=== PATIENT | female | born 1975 | race African-American/Black ===

== ENCOUNTER 2017-08-18 16:07 | Emergency (ER) | payer SELFPAY ==
--- NOTE | 2017-08-18 16:46 | RAD ---
LEFT SHOULDER: 08/18/17 Three views. HISTORY: Shoulder pain. No evidence of fracture. No evidence of dislocation. AC joint is normally aligned. IMPRESSION: Unremarkable left shoulder. POS: [facility]
== END 2017-08-18 16:58 | disposition home or self-care (01) ==
LOC: ERS 16:07
DX: S43.422A Sprain of left rotator cuff capsule, initial encounter (principal); I10 Essential (primary) hypertension; X58.XXXA Exposure to other specified factors, initial encounter

== ENCOUNTER 2018-07-24 18:57 | Emergency (ER) | payer SELFPAY ==
[2018-07-24] MEDS ORDERED: Acetaminophen 500 MG TAB ONE ×2 (20:17→20:27)
[2018-07-24] MEDS ORDERED: Metoclopramide HCl 10 MG/2 ML VIAL ONE (20:17)
[2018-07-24] MEDS ORDERED: diphenhydrAMINE 50 MG/ML VIAL ONE (20:17)
[2018-07-24] MEDS ORDERED: Ketorolac Tromethamine 30 MG/ML VIAL ONE (20:17)
[2018-07-24] MEDS ORDERED: Magnesium Sulfate 2 GM/100 ML BAG ONE (22:04)
[2018-07-24] MEDS ORDERED: methylPREDNISolone Sod Succ/PF 125 MG/2 ML VIAL ONE (22:04)
== END 2018-07-24 23:17 | disposition home or self-care (01) ==
LOC: ERS 18:57
DX: G43.909 Migraine, unspecified, not intractable, without status migrainosus (principal); I10 Essential (primary) hypertension; Z79.899 Other long term (current) drug therapy
CPT/HCPCS: 96361; 96365; 96375; J1200; J1885; J2765; J2930; J3475

== ENCOUNTER 2019-01-20 13:40 | Outpatient (CLI) | payer MEDICAID ==
--- NOTE | 2019-02-08 15:54 | MMO ---
Bilateral MAMMO Bilat Screen [facility]DI. CLINICAL HISTORY: Patient is 43 years old and is seen for screening. The patient has no family history of breast cancer. The patient has no personal history of cancer. VIEWS: The views performed were: bilateral craniocaudal and bilateral mediolateral oblique. This study has been interpreted with the assistance of computer-aided detection. MAMMOGRAM FINDINGS: The breasts are heterogeneously dense, which could obscure a lesion on mammography. There are no suspicious masses, suspicious calcifications, or new areas of architectural distortion. IMPRESSION: THERE IS NO MAMMOGRAPHIC EVIDENCE OF MALIGNANCY. A ROUTINE FOLLOW-UP MAMMOGRAM IN 1 YEAR IS RECOMMENDED. ACR BI-RADS Category 1 - Negative MAMMOGRAPHY NOTE: 1. A negative mammogram report should not delay a biopsy if a dominant of clinically suspicious mass is present. 2. Approximately 10% to 15% of breast cancers are not detected by mammography. 3. Adenosis and dense breasts may obscure an underlying neoplasm.
== END 2019-01-20 13:41 | disposition home or self-care (01) ==
LOC: SCSMAMMO 13:40
PROVIDERS: ATTEND Nurse Practitioner Family
DX: Z12.31 Encounter for screening mammogram for malignant neoplasm of breast (principal)
CPT/HCPCS: 77067

== ENCOUNTER 2019-08-22 21:36 | Emergency (ER) | payer MEDICAID ==
[2019-08-22 23:56] LABS: #Basophils 0.1 thou/uL (0.0-0.2); #Eosinphils 0.1 thou/uL (0.0-0.7); #Lymphocytes 2.7 thou/uL (1.20-3.40); #Monocytes 0.7 thou/uL (0.11-0.59); #Neutrophils 5.4 thou/uL (1.40-6.50); %Eosinophils 1.5 % (0.0-10.0); %Lymphocytes 29.5 % (21.0-51.0); %Monocytes 7.7 % (0.0-10.0); %Neutrophils 60.3 % (42.0-75.0); Hemoglobin 12.4 g/dL (12.0-16.0); Mean Corpuscular HGB CONC 33.9 g/dL (32.0-36.0); Mean Corpuscular Hemoglobin 28.6 pg (27.0-31.0); Mean Corpuscular Volume 84.4 fL (78.0-98.0); Mean Platelet Volume 7.1 fL (7.4-10.4); Platelet Count 313 thou/uL (130-400); RBC Distribution Width 12.3 % (11.5-14.5); Red Blood Cell (RBC) Count 4.35 mill/uL (4.20-5.40)
[2019-08-23 00:19] LABS: ALT (SGPT) 10 U/L (8-55); AST (SGOT) 15 U/L (5-34); Albumin 4.1 g/dL (3.5-5.0); Alkaline Phosphatase 59 U/L (40-110); Anion Gap 14 mmol/L (10-20); BUN (Urea Nitrogen) 7 mg/dL (7.0-18.7); Bilirubin, Total 0.4 mg/dL (0.2-1.2); Calc. Creatinine Clearance 0 mL/min (70-130); Calcium 9.2 mg/dL (7.8-10.44); Carbon Dioxide 26 mmol/L (22-29); Chloride 97 mmol/L (98-107); Estimated GFR-MDRD Greater than 90; Globulin 3.8 g/dL (2.4-3.5); Glucose 95 mg/dL (70-105); Lipase 24 U/L (8-78); Potassium 3.6 mmol/L (3.5-5.1); Protein, Total 7.9 g/dL (6.0-8.3); Sodium 133 mmol/L (136-145)
[2019-08-23 00:27] LABS: Bilirubin Negative (Negative); Blood, Urine Negative (Negative); Clarity Clear (Clear); Glucose, Urine (Dipstick) Normal (Negative); Leukocyte Negative Leu/uL (Negative); Nitrite Negative (Negative); Protein, Urine (Dipstick) 10 mg/dL (Neg-Trace); Urobilinogen Normal mg/dL (Less than 2)
[2019-08-23 00:30] LABS: Pregnancy Test - Urine (BHCG) Negative (Negative); Pregu Control Background? CLEAR/WHITE (CLR/WHITE); Pregu Control Bar Appear? YES (CONTROL BAR); Specific Gravity 1.025 (1.002-1.036)
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
== END 2019-08-23 02:40 | disposition home or self-care (01) ==
LOC: ERS 21:36
DX: R51 Headache (principal); I10 Essential (primary) hypertension; F32.9 Major depressive disorder, single episode, unspecified; V59.9XXA Occupant (driver) (passenger) of pick-up truck or van injured in unspecified traffic accident, initial encounter
CPT/HCPCS: 36415; 70450; 71045; 72125; 80053; 81003; 81025; 83690; 85025; 93005; 96374

== ENCOUNTER 2019-12-25 10:59 | Emergency (ER) | payer MEDICAID, SELFPAY ==
[2019-12-25 11:42] LABS: Bilirubin Negative (Negative); Blood, Urine Negative (Negative); Clarity Clear (Clear); Glucose, Urine (Dipstick) Normal (Negative); Leukocyte Negative Leu/uL (Negative); Nitrite Negative (Negative); Protein, Urine (Dipstick) Negative (Neg-Trace); Urobilinogen Normal mg/dL (Less than 2)
== END 2019-12-25 12:18 | disposition home or self-care (01) ==
LOC: ERS 10:59
DX: J06.9 Acute upper respiratory infection, unspecified (principal); F32.9 Major depressive disorder, single episode, unspecified; I10 Essential (primary) hypertension; Z79.899 Other long term (current) drug therapy
CPT/HCPCS: 81003; 99284

== ENCOUNTER 2020-09-29 10:24 | Emergency (ER) | payer SELFPAY ==
[2020-09-29] MEDS ORDERED: diphenhydrAMINE 50 MG/ML VIAL ONE (10:45)
[2020-09-29] MEDS ORDERED: Acetaminophen 500 MG TAB ONE (10:45)
[2020-09-29] MEDS ORDERED: Ketorolac Tromethamine 30 MG/ML VIAL ONE (10:45)
[2020-09-29] MEDS ORDERED: Metoclopramide HCl 10 MG/2 ML VIAL ONE (10:45)
[2020-09-29] MEDS ORDERED: diphenhydrAMINE 25 MG CAP ONE (11:46)
[2020-09-29] MEDS ORDERED: Metoclopramide HCl 10 MG TAB ONE (11:46)
[2020-09-29] MEDS ORDERED: Dexamethasone 10 MG/ML VIAL ONE (11:46)
--- NOTE | 2020-09-29 11:56 | RAD ---
LEFT KNEE 4 VIEWS: DATE: 09/29/2020 HISTORY: Left knee pain. FINDINGS/IMPRESSION: No fracture, dislocation, or bony destruction identified. Minimal degenerative changes are present. POS: [facility]
== END 2020-09-29 12:38 | disposition home or self-care (01) ==
LOC: ERS 10:24
DX: G43.909 Migraine, unspecified, not intractable, without status migrainosus (principal); G89.29 Other chronic pain; M25.562 Pain in left knee; I10 Essential (primary) hypertension
CPT/HCPCS: 96372; J1100; J1200; J1885; J2765; Q0163